=== PATIENT | female | born 2005 | race Caucasian/White ===

== ENCOUNTER 2024-01-12 13:58 | Emergency (ER) | payer SELFPAY ==
[2024-01-12 14:05] VITALS: BP 109/68
[2024-01-12 14:20] VITALS: BMI 21.0
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
[2024-01-12 14:49] LABS: Urine Albumin Trace (Neg - Trace); Urine Bilirubin 1+ (Negative); Urine Character Clear (Clear); Urine Color Yellow; Urine Glucose Negative (Negative); Urine Ketone 3+ (Negative); Urine Leukocyte Trace (Negative); Urine Nitrite Positive (Negative); Urine Occult Blood Negative (Negative); Urine Specific Gravity 1.025 (<1.030); Urine Urobilinogen Negative (Neg - 1+)
[2024-01-12 14:55] LABS: HCG, Urine Qualitative Screen Negative
[2024-01-12 15:08] LABS: Urine Bacteria Moderate (Negative); Urine Red Blood Cell 0-2 /HPF (0-2); Urine Squamous Cell >30 /LPF (Few); Urine White Cell 50-60 /HPF (0-5)
== END 2024-01-12 16:15 | disposition home or self-care (01) ==
LOC: EMR 13:58
PROVIDERS: Physician Assistant; EMERGENCY PHYSICIAN Emergency Medicine
DX: N39.0 Urinary tract infection, site not specified (principal); S06.0XAA Concussion with loss of consciousness status unknown, initial encounter; V43.52XA Car driver injured in collision with other type car in traffic accident, initial encounter; F17.200 Nicotine dependence, unspecified, uncomplicated
CPT/HCPCS: 99283; 81003; 81015; 81025; 87086; 87088; 87186

== ENCOUNTER 2024-09-01 20:39 | Emergency (ER) | payer SELFPAY ==
[2024-09-01 20:41] VITALS: BP 113/69
--- NOTE | 2024-09-01 20:41 | ED.GENMED ---
ED Provider Triage
<Ghada Torres PA-C - Last Filed: 09/01/24 20:44>
-
Patient seen by provider in Triage?: Seen in Triage
Attestation: A medical screening examination has been initiated by a qualified medical provider. Based on the assessment performed at this time, it has been determined that an emergent medical condition may exist and the patient has been informed
that further medical evaluation and possible additional diagnostic testing may be needed.
HPI: 19yoF here with vomiting since waking up this morning. Also having SOB, CP, and near syncope. Admits to drinking a lot of wine last night.
GENERAL: Alert , in no apparent distress
EYE: No visual abnormalities.
NECK: Trachea midline
ENT: No visible abnormalities.
LUNGS: No acute respiratory distress
NEUROLOGICAL: Alert and oriented
SKIN: Skin intact. No visible changes.
MUSCULOSKELETAL: Moving extremities normally
PSYCH: Normal and appropriate interaction.
This is a medical evaluation conducted in person to initiate diagnostic evaluation and provide initial therapeutics. Please see further documentation by the treating clinician.
Abdominal labs, troponin/EKG, magnesium, HCG, and CXR ordered.
History of Present Illness
<Ghada Torres PA-C - Last Filed: 09/01/24 20:44>
General
Chief Complaint: Abdominal Symptoms
Time Seen by Provider: 09/01/24 21:39
<Jj Cervantes DO - Last Filed: 09/02/24 00:38>
General
Source: patient and family
Exam Limitations: none
Nursing documentation reviewed up to this point in time: agreed with
History of Present Illness
History of Present Illness:
19-year-old female nausea vomiting had a few alcoholic drinks last evening, 1 loose bowel movement, positive sick contacts does use medicinal marijuana, has anxiety, currently vomited up her beta-avelino, has burning in her chest from vomiting
cramping in her abdomen, no prior abdominal surgeries, does not typically get sick when she drinks alcohol,
Past History
<Ghada Torres PA-C - Last Filed: 09/01/24 20:44>
Past History
ED Past Medical History: None
ED Past Surgical History: Tonsilectomy
Social History
Tobacco: Smoker
Alcohol: Occasional
Personal: Single
Living: with family
Employment: Student
<Jj Cervantes DO - Last Filed: 09/02/24 00:38>
Past History
ED Past Medical History: Psychiatric
Social History
Drug: None
Review of Systems
<Jj Cervantes DO - Last Filed: 09/02/24 00:38>
Review of Systems
All Other Systems: Not applicable
Constitutional: Denies fever or fatigue
Cardiac: Reports chest pain (Burning in her chest vomit)
ABD/GI: Reports abdominal pain, nausea, vomiting and diarrhea
: Reports no symptoms
Neurological: Reports weakness
Psychiatric: Reports anxiety
Phy Exam
<Jj Cervantes DO - Last Filed: 09/02/24 00:38>
Physical Exam
Physical Exam:
Physical Exam
General: 19-year-old female retching
Neck: No jaundice
Heart: s1/s2 regular rate and rhythm, no murmur. equal radial pulses.
Lungs: no acute respiratory distress. clear bilaterally
Abdomen: Mild diffuse tender
Neuro: alert and oriented. no focal neurological deficits
Skin: no rash
Psychiatric: Cooperative
Extremities: no edema.
Course
<Ghada Torres PA-C - Last Filed: 09/01/24 20:44>
Orders/Labs/Results
Orders:
Orders
09/01/24 20:42
Test Result ONCE
09/01/24 20:43
Electrocardiogram (*1) Urgent
Reason for Study: Chest Pain
EKG- Treatment ONCE
CR Chest - 2 Views Urgent
Comment:
Reason For Exam: SOB
09/01/24 21:00
Troponin I Urgent
09/01/24 21:01
Comprehensive Metabolic Panel Urgent
HCG, Serum Qualitative Screen Urgent
Lipase Urgent
Magnesium Urgent
09/01/24 21:46
0.9% Sodium Chloride 1000 ml [Nss] 1,000 ml IV BOLUS
Ondansetron Injectable [Zofran] 4 mg IV NOW STA
Pantoprazole [Protonix IV] 40 mg IV NOW STA
09/01/24 22:10
Complete Blood Count/With Diff Urgent
09/01/24 23:32
0.9% Sodium Chloride 1000 ml [Nss] 1,000 ml IV BOLUS
Ondansetron Injectable [Zofran] 4 mg IV NOW STA
Abnormal Lab Results
09/01/24 09/01/24
21:01 22:10
WBC 16.8 H 10^3/uL
(4.8-10.8)
RBC 4.19 L 10^6/uL
(4.20-5.40)
MCH 31.3 H pg
(27.0-31.0)
MPV 12.3 H fL
(7.4-10.4)
Abs Immat Gran (auto) 0.1 H 10^3/uL
(0-0.05)
Absolute Neuts (auto) 15.5 H 10^3/uL
(1.4-6.5)
Absolute Lymphs (auto) 0.9 L 10^3/uL
(1.2-3.4)
Neutrophils % 92.2 H %
(42.2-75.2)
Lymphocytes % 5.4 L %
(20.5-51.1)
Carbon Dioxide 18 L mmol/L
(22-30)
BUN 23 H mg/dl
(7-17)
Glucose 102 H mg/dl
(70-99)
AST 55 H U/L
(14-36)
Albumin 5.1 H g/dl
(3.5-5.0)
09/01/24 22:10
09/01/24 21:01
Vital Signs
Initial and Last Documented VS:
Initial Vital Signs
Temp Pulse Resp BP Pulse Ox
97.9 F 57 16 113/69 98
09/01/24 20:41 09/01/24 20:41 09/01/24 20:41 09/01/24 20:41 09/01/24 20:41
Last Documented Vital Signs
Temp Pulse Resp BP Pulse Ox
97.7 F 64 16 108/60 98
09/01/24 22:15 09/01/24 22:15 09/01/24 22:15 09/01/24 22:15 09/01/24 22:15
<Jj Cervantes, DO - Last Filed: 09/02/24 00:38>
Orders/Labs/Results
Orders:
Orders
09/01/24 20:42
Test Result ONCE
09/01/24 20:43
Electrocardiogram (*1) Urgent
Reason for Study: Chest Pain
EKG- Treatment ONCE
CR Chest - 2 Views Urgent
Comment:
Reason For Exam: SOB
09/01/24 21:00
Troponin I Urgent
09/01/24 21:01
Comprehensive Metabolic Panel Urgent
HCG, Serum Qualitative Screen Urgent
Lipase Urgent
Magnesium Urgent
09/01/24 21:46
0.9% Sodium Chloride 1000 ml [Nss] 1,000 ml IV BOLUS
Ondansetron Injectable [Zofran] 4 mg IV NOW STA
Pantoprazole [Protonix IV] 40 mg IV NOW STA
09/01/24 22:10
Complete Blood Count/With Diff Urgent
09/01/24 23:32
0.9% Sodium Chloride 1000 ml [Nss] 1,000 ml IV BOLUS
Ondansetron Injectable [Zofran] 4 mg IV NOW STA
Abnormal Lab Results
09/01/24 09/01/24
21:01 22:10
WBC 16.8 H 10^3/uL
(4.8-10.8)
RBC 4.19 L 10^6/uL
(4.20-5.40)
MCH 31.3 H pg
(27.0-31.0)
MPV 12.3 H fL
(7.4-10.4)
Abs Immat Gran (auto) 0.1 H 10^3/uL
(0-0.05)
Absolute Neuts (auto) 15.5 H 10^3/uL
(1.4-6.5)
Absolute Lymphs (auto) 0.9 L 10^3/uL
(1.2-3.4)
Neutrophils % 92.2 H %
(42.2-75.2)
Lymphocytes % 5.4 L %
(20.5-51.1)
Carbon Dioxide 18 L mmol/L
(22-30)
BUN 23 H mg/dl
(7-17)
Glucose 102 H mg/dl
(70-99)
AST 55 H U/L
(14-36)
Albumin 5.1 H g/dl
(3.5-5.0)
09/01/24 22:10
09/01/24 21:01
Vital Signs
Initial and Last Documented VS:
Initial Vital Signs
Temp Pulse Resp BP Pulse Ox
97.9 F 57 16 113/69 98
09/01/24 20:41 12/13/24 20:41 09/01/24 20:41 09/01/24 20:41 09/01/24 20:41
Last Documented Vital Signs
Temp Pulse Resp BP Pulse Ox
97.7 F 64 16 108/60 98
09/01/24 22:15 09/01/24 22:15 09/01/24 22:15 09/01/24 22:15 09/01/24 22:15
<Jj Cervantes, DO - Last Filed: 09/02/24 00:38>
MDM/Problems Addressed
Differential Diagnosis Includes:
Enteritis viral syndrome alcohol intoxication alcohol withdrawal cannabis hyperemesis appendicitis ovarian pathology ectopic
MDM/Problems Addressed:
Vomiting diarrhea abdominal pain
<Jj Cervantes, DO - Last Filed: 09/02/24 00:38>
*Radiology
Radiology exam reviewed: radiology read reviewed
*Pulse Oximetry
Patient hypoxic: no
*EKG
Interpreted by ED Provider?: Yes
Interpretation: normal
Comparison EKG: no comparison EKG present
Heart Rate: 78
Rate: normal
Rhythm: sinus
Ischemia: no ischemia
*[place] Interpretation
Rate: normal
Interpretation: normal
Heart Rate: 78
Rhythm: sinus
*Critical Care Note
Total Time (30-74mins, 75-104mins- exclusive of procedures): Not Applicable
<Jj Cervantes, DO - Last Filed: 09/02/24 00:38>
Update Note
Update Note:
11:30 PM update reevaluation patient looks much improved after IV fluids Zofran and Protonix her abdomen is soft and nontender no guarding or rebound still bit nauseous reviewed expectant management versus indication for CT scanning my index
suspicion for appendicitis is low will hold off at this point, continue to perform serial abdominal exams shared decision making with patient and her mother
12:30 PM
Patient resting abdomen soft and nontender
ED Attending Note
<Ghada Torres PA-C - Last Filed: 09/01/24 20:44>
-
Portions of this chart may have been created with voice recognition software.� Occasional wrong word or��sound alike� substitutions may have occurred due to the inherent limitations of voice recognition software.
Discharge Plan
Departure
Patient Disposition: Home (Routine Discharge)
Date of Disposition: 09/02/24
Time of Disposition: 00:36
Patient with high blood pressure during this ER visit?: No
Condition: Good
Covid-19: Not Applicable
Discharge Problem:
Vomiting
Instructions: Dehydration, Adult (DC), [place] Diet, Nausea and Vomiting, Adult (DC), Abdominal Pain
Prescriptions:
New
ondansetron 4 mg tablet,disintegrating
4 mg PO Q8H PRN (Reason: nausea and vomiting) Qty: 10 0RF
No Action
propranolol 60 mg Tablet
30 mg PO BID PRN (Reason: anxiety)
Referrals:
NONE,* [Family Provider] -
Stand Alone Forms: Return to Work
Activity Restrictions/Additional Instructions:
Return to the ER if worsening symptoms
Interventions
Interventions:
*Risk Screen - Suicide Last Done: 09/01/24 20:41
*General Assessment Last Done: 09/01/24 20:41
*Neglect/Abuse Screening Last Done: 09/01/24 20:41
ED- Fall Risk Assessment Last Done: 09/01/24 22:15
*ED COVID-19 Vaccine History Last Done: 09/01/24 20:41
MP-Sflhjq-Dykluduldo Assessment Last Done: 09/01/24 22:15
Discharge Date and Time
Print Language: SERBIAN
[2024-09-01 21:27] LABS: HCG, Serum Qualitative Screen Negative
[2024-09-01 21:29] LABS: ALT (SGPT) 34 U/L (0-35); AST (SGOT) 55 U/L (14-36); Albumin 5.1 g/dl (3.5-5.0); Alkaline Phosphatase 103 U/L (38-126); Blood Urea Nitrogen 23 mg/dl (7-17); Calcium 9.9 mg/dl (8.4-10.2); Carbon Dioxide 18 mmol/L (22-30); Chloride 105 mmol/L (98-107); Glucose 102 mg/dl (70-99); Lipase 64 U/L (23-300); Magnesium 1.7 mg/dl (1.6-2.3); Potassium 4.5 mmol/L (3.5-5.1); Sodium 139 mmol/L (135-145); Total Bilirubin 1.2 mg/dl (0.2-1.3); Total Protein 7.7 g/dl (6.3-8.2); eGFR > 60.00
[2024-09-01 21:31] LABS: Troponin I < 0.012 ng/ml
[2024-09-01] MEDS: NSS 1000 IV ×2 (22:05→23:41)
[2024-09-01] MEDS: ZOFRAN 4 MG IV ×2 (22:06→23:42)
[2024-09-01] MEDS: PROTONIX IV 40 MG IV (22:08)
[2024-09-01 22:13] VITALS: BMI 21.4
[2024-09-01 22:15] VITALS: BP 108/60
[2024-09-01 22:21] LABS: % Basophils 0.2 % (0-2); % Immature Granulocytes 0.4 % (0-0.5); % Lymphocytes 5.4 % (20.5-51.1); % Monocytes 1.8 % (1.7-9.3); % Neutrophils 92.2 % (42.2-75.2); Absolute Immature Granulocytes 0.1 10^3/uL (0-0.05); Absolute Lymphocytes 0.9 10^3/uL (1.2-3.4); Absolute Monocytes 0.3 10^3/uL (0.1-0.6); Absolute Neutrophils 15.5 10^3/uL (1.4-6.5); Hematocrit 39.6 % (37.0-47.0); Hemoglobin 13.1 g/dL (12.0-16.0); Mean Corp Hgb Conc. 33.1 g/dL (33.0-37.0); Mean Corpuscular Hgb 31.3 pg (27.0-31.0); Mean Corpuscular Volume 94.5 fL (81.0-99.0); Mean Platelet Volume 12.3 fL (7.4-10.4); Nucleated Red Blood Cells % 0 %; Platelet Count 167 10^3/uL (130-400); Red Blood Cell Count 4.19 10^6/uL (4.20-5.40); Red Cell Dist. Width 14.1 % (11.5-14.5); White Blood Cell Count 16.8 10^3/uL (4.8-10.8)
[2024-09-02 00:58] VITALS: BP 112/66
== END 2024-09-02 00:59 | disposition home or self-care (01) ==
LOC: EMR 20:39
PROVIDERS: Physician Assistant; EMERGENCY PHYSICIAN Emergency Medicine
DX: R11.2 Nausea with vomiting, unspecified (principal); R10.9 Unspecified abdominal pain; R06.02 Shortness of breath; F17.200 Nicotine dependence, unspecified, uncomplicated
CPT/HCPCS: 96374; 96375; 96361; 99285; 71046; 80053; 83690; 83735; 84484; 84703; 85025; 93005